=== PATIENT | male | born 1950 | race Caucasian/White ===

== ENCOUNTER 2019-09-27 09:09 | Inpatient (IN) | payer MEDICARE, OTHER ==
[~2019-09-27] VITALS: Ht 180.3 cm; Wt 108.5 kg
[~2019-09-27 09:09] MED LIST: AGGRENOX; AMARYL; ASPI325; ASPI325 PO; ATEN50 PO; Aggrenox Capsu1 EACH PO; BUPR150ER PO; CARDIZEM; COMPLETE MULTI1 EAC1 PO; Cardizem LA360 MG PO; DILT120ER PO; DILT60ER PO; Diovan320 MG; FLUT.05NI; GLIM4 PO; GLIP10ER PO; GLIP5 PO; INSULANPEN SC; LACRI-LUBE; LAMO100 PO; LAMO25 PO; LANTUS; LISINOPRIL; METF500; METO50ER; Norco 5-325 Ta1 EACH PO; OLME20; OLME20 PO; OMEP40CA12 PO; PIOG45 PO; ROSI2; SULTRIDS PO; VALS80 PO; VIT D; VITAMIN D31000 UNIT PO; WELLBUTRIN
[2019-09-27 09:46] LABS: BASOPHILS ABSOLUTE AUTO 0.04 K/mm3 (0.00-0.23); BASOPHILS PERCENT AUTO 1 % (0-2); EOSINOPHILS ABSOLUTE AUTO 0.19 K/mm3 (0.00-0.68); EOSINOPHILS PERCENT AUTO 3 % (0-6); Hematocrit 40.5 % (37.0-53.0); Hemoglobin 13.3 g/dL (13.5-17.5); IMMATURE GRAN ABSOLUTE AUTO 0.01 K/mm3 (0.00-0.10); IMMATURE GRAN PERCENT AUTO 0 % (0-1); LYMPHOCYTES ABSOLUTE AUTO 1.35 K/mm3 (0.84-5.20); LYMPHOCYTES PERCENT AUTO 19 % (21-46); MONOCYTES ABSOLUTE AUTO 0.42 K/mm3 (0.16-1.47); MONOCYTES PERCENT AUTO 6 % (4-13); Mean Corpuscular HGB 28.9 pg (26.0-34.0); Mean Corpuscular HGB Conc 32.8 g/dL (31.5-36.5); Mean Corpuscular Volume 88 fL (80-100); Mean Platelet Volume 10.3 fL (9.1-12.4); NEUTROPHILS ABSOLUTE AUTO 5.29 K/mm3 (1.96-9.15); NEUTROPHILS PERCENT AUTO 73 % (41-73); Platelet Count 181 K/mm3 (150-400); RDW Coefficient Variation 13.4 % (11.7-14.2); RDW Standard Deviation 42.8 fL (35.1-46.3); Red Blood Cell Count 4.61 M/mm3 (4.30-5.90)
[2019-09-27 09:58] LABS: Alanine Aminotransfer (ALT/SGP 23 U/L (12-78); Albumin, Blood 3.3 g/dL (3.4-5.0); Albumin/Globulin Ratio 0.8 (0.8-1.8); Alk Phos 91 U/L (50-136); Anion Gap 5 mmol/L (6-16); Aspartate Aminotrans (AST/SGOT 16 U/L (12-37); Bilirubin, Total 0.6 mg/dL (0.1-1.0); Blood Urea Nitrogen 27 mg/dL (8-24); Bun/Creatinine Ratio 13.4 (12.0-20.0); CO2, Blood 25 mmol/L (21-32); Calcium, Blood 8.4 mg/dL (8.5-10.1); Chloride, Blood 107 mmol/L (98-108); Creatinine, Blood 2.02 mg/dL (0.60-1.20); Globulin, Blood 3.9 g/dL (2.2-4.0); Glomerular Filtration Rate 35 (60-); Glucose, Blood 192 mg/dL (70-99); Sodium, Blood 137 mmol/L (136-145); Total Protein, Blood 7.2 g/dL (6.4-8.2); Troponin I <0.015 ng/mL (0.000-0.040)
[2019-09-27 10:01] LABS: International Normalized Ratio 0.97; Prothrombin Time Results 10.4 Sec (9.7-11.5)
[2019-09-27 12:30] LABS: Phosphorus, Blood 2.6 mg/dL (2.5-4.9)
[2019-09-27 12:48] LABS: CHOL/HDL RATIO 5.6; Cholesterol 217 mg/dL (50-200); HDL Cholesterol 39 mg/dL (>39); LDL/HDL RATIO 3.4; Low Density Lipoprotein Chol 134 mg/dL (0-110); Triglycerides 220 mg/dL (30-160); Very Low Density Lipoprot Chol 44 mg/dL (6-32)
--- NOTE | 2019-09-27 13:38 | NUR ---
Echocardiogram using 9.0ml of agitated saline contrast.
--- NOTE | 2019-09-27 18:33 | NUR ---
PT ARRIVAL... PT ARRIVED ON UNIT VIA GURNEY. PT IS A&Ox4 AND WAS ADMITTED FOR CVA. PT HAS SLIGHT RIGHT SIDED FACIAL DROOP AND SLIGHT RIGHT SIDED WEAKNESS. PT HAS SOME DYSPHAGIA AND SLURRED WORDS BUT FOR THE MOST PART IS ABLE TO ANSWER QUESTIONS APPROPRIATLEY. PT'S VS STABLE EXCEPT FOR THE PT'S HYPERTENSION, THIS HAS GREATLY IMPROVED FROM ADMIT. PT DENIES HEADACHE, CHEST PAIN/PRESSURE N/V OR SOB AT THIS TIME. PT'S AT THE BEDSIDE. DIAZ WAS PLACE D/T RETENTION, FOELY IS DRAINING DARK YELLOW URINE TO GRAVITY. CALL LIGHT INREACH WILL CONTINUE TO MONITOR UNTIL REPORT IS GIVEN TO ONCOMING RN.
[2019-09-27 20:27] LABS: Source, Urine Clean Catch
[2019-09-27 20:33] LABS: Bilirubin, Urine Neg (Neg); Blood, Urine 5+ (Neg); Glucose Qualitative, Urine 3+ (Neg); Ketones, Urine 1+ (Neg); Leukocyte Esterase, Urine 3+ (Neg); Nitrite, Urine Pos (Neg); Protein, Urine 4+ (Neg); Urobilinogen, Urine NORM (Normal)
[2019-09-27 21:13] LABS: Appearance, Urine Cloudy (Clear); Color, Urine Red (P-Yellow)
[2019-09-27 21:14] LABS: Bacteria Mod /hpf; Red Blood Cells, Urine TNTC /hpf (0-2); Squamous Epithelial Cells Not Seen /hpf (Few); White Blood Cells, Urine TNTC /hpf (0-5)
[2019-09-28 05:34] LABS: BASOPHILS ABSOLUTE AUTO 0.05 K/mm3 (0.00-0.23); BASOPHILS PERCENT AUTO 1 % (0-2); EOSINOPHILS ABSOLUTE AUTO 0.14 K/mm3 (0.00-0.68); EOSINOPHILS PERCENT AUTO 2 % (0-6); Hematocrit 34.6 % (37.0-53.0); Hemoglobin 11.7 g/dL (13.5-17.5); IMMATURE GRAN ABSOLUTE AUTO 0.02 K/mm3 (0.00-0.10); IMMATURE GRAN PERCENT AUTO 0 % (0-1); LYMPHOCYTES ABSOLUTE AUTO 1.57 K/mm3 (0.84-5.20); LYMPHOCYTES PERCENT AUTO 16 % (21-46); MONOCYTES ABSOLUTE AUTO 0.72 K/mm3 (0.16-1.47); MONOCYTES PERCENT AUTO 8 % (4-13); Mean Corpuscular HGB 29.5 pg (26.0-34.0); Mean Corpuscular HGB Conc 33.8 g/dL (31.5-36.5); Mean Corpuscular Volume 87 fL (80-100); Mean Platelet Volume 10.4 fL (9.1-12.4); NEUTROPHILS ABSOLUTE AUTO 7.07 K/mm3 (1.96-9.15); NEUTROPHILS PERCENT AUTO 74 % (41-73); Platelet Count 162 K/mm3 (150-400); RDW Coefficient Variation 13.5 % (11.7-14.2); RDW Standard Deviation 42.6 fL (35.1-46.3); Red Blood Cell Count 3.96 M/mm3 (4.30-5.90); White Blood Cell Count 9.57 K/mm3 (4.00-11.30)
[2019-09-28 06:02] LABS: Albumin, Blood 2.6 g/dL (3.4-5.0); Albumin/Globulin Ratio 0.8 (0.8-1.8); Bilirubin, Total 0.7 mg/dL (0.1-1.0); Bun/Creatinine Ratio 12.8 (12.0-20.0); Calcium, Blood 8.1 mg/dL (8.5-10.1); Creatinine, Blood 2.18 mg/dL (0.60-1.20); Globulin, Blood 3.3 g/dL (2.2-4.0); Total Protein, Blood 5.9 g/dL (6.4-8.2)
--- NOTE | 2019-09-28 06:39 | NUR ---
SHIFT SUMMARY PT A&O X4 W/ SLIGHT R-SIDED FACIAL DROOP & R-SIDED WEAKNESS. PT'S SPEECH INTERMITTENTLY SLURRED, OTHERWISE CLEAR. LUNG SOUNDS CLEAR. SPO2 > 92% ON RA OR CPAP. MONITOR SHOWS NSR. BP ELEVATED W/ SYS BP RANGING FROM 181-200 THIS SHIFT. DIAZ CATH PATENT AND DRAINING YELLOW/RED URINE. NS GTT INFUSING PER ORDERS. WILL CONTINUE TO MONITOR AND PROVIDE CARE UNTIL REPORT OFF TO DAY SHIFT RN.
--- NOTE | 2019-09-28 18:20 | NUR ---
SHIFT SUMMARY PT IS A NEW TRANSFER FROM PCU 12 TO ROOM 332 THIS EVENING. PT ORIENTED TO ROOM AND CALL LIGHT. NO COMPLAINTS OF PAIN OR SHORTNESS OF BREATH. PT ABLE TO TRANSFER TO BED FROM WHEELCHAIR WITH MODERATE ASSIST. DIAZ PATENT AND DRAINING WITHOUT DIFFICULTY. PT EATING DINNER AT THIS TIME WITHOUT DIFFICULTY. NO ACUTE CHANGES AT THIS TIME. CALL LIGHT IN REACH. WILL CONTINUE TO MONITOR AND REPORT TO ONCOMING RN.
[2019-09-29 06:05] LABS: BASOPHILS ABSOLUTE AUTO 0.06 K/mm3 (0.00-0.23); BASOPHILS PERCENT AUTO 1 % (0-2); EOSINOPHILS ABSOLUTE AUTO 0.29 K/mm3 (0.00-0.68); EOSINOPHILS PERCENT AUTO 4 % (0-6); Hematocrit 38.8 % (37.0-53.0); Hemoglobin 13.1 g/dL (13.5-17.5); IMMATURE GRAN ABSOLUTE AUTO 0.03 K/mm3 (0.00-0.10); IMMATURE GRAN PERCENT AUTO 0 % (0-1); LYMPHOCYTES ABSOLUTE AUTO 1.62 K/mm3 (0.84-5.20); LYMPHOCYTES PERCENT AUTO 20 % (21-46); MONOCYTES ABSOLUTE AUTO 0.55 K/mm3 (0.16-1.47); MONOCYTES PERCENT AUTO 7 % (4-13); Mean Corpuscular HGB 29.3 pg (26.0-34.0); Mean Corpuscular HGB Conc 33.8 g/dL (31.5-36.5); Mean Corpuscular Volume 87 fL (80-100); Mean Platelet Volume 10.1 fL (9.1-12.4); NEUTROPHILS ABSOLUTE AUTO 5.66 K/mm3 (1.96-9.15); NEUTROPHILS PERCENT AUTO 69 % (41-73); Platelet Count 173 K/mm3 (150-400); RDW Coefficient Variation 13.2 % (11.7-14.2); RDW Standard Deviation 41.8 fL (35.1-46.3); Red Blood Cell Count 4.47 M/mm3 (4.30-5.90); White Blood Cell Count 8.21 K/mm3 (4.00-11.30)
--- NOTE | 2019-09-29 06:41 | NUR ---
SHIFT SUMMARY PT IS A 69 Y/O MALE, ADMITTED FOR A CVA. HE IS A&O X 3, AND A 1PA W/ A FWW. PT DOES HAVE MILD OVERALL WEAKNESS, BUT NO INCREASED R-SIDED WEAKNESS NOTED. PT DID HAVE SOME SLURRED SPEECH AND APHASIA. NO COMPLAINTS OF PAIN, NAUSEA OR SOB. PT'S BP WAS ELEVATED DURING THE NIGHT, IN THE 180-190S SYSTOLICALLY. ALL OTHER VITALS STABLE. PT'S DIAZ IS PATENT AND DRAINING CLEAR YELLOW URINE. NO OTHER ACUTE CHANGES IN PT CONDITION NOTED. WILL CONTINUE TO MONITOR AND TREAT PER EMAR UNTIL HAND OFF TO DAY SHIFT RN.
[2019-09-29 06:42] LABS: Percent Saturation 30.8 % (20.0-50.0)
[2019-09-29 07:03] LABS: Bun/Creatinine Ratio 13.9 (12.0-20.0); Calcium, Blood 8.4 mg/dL (8.5-10.1); Creatinine, Blood 2.09 mg/dL (0.60-1.20); Potassium, Blood 4.3 mmol/L (3.5-5.5); Thyroid Stimulating Hormone 3.3 uIU/mL (0.360-4.800)
--- NOTE | 2019-09-29 18:33 | NUR ---
SHIFT SUMMARY DR. NEWMAN CHANGED PT'S BLOOD PRESSURE MEDICATIONS AND PT'S BLOOD PRESSURE HAD LOWERED SLIGHTLY. PT SAT UP IN THE CHAIR FOR BREAKFAST AND TOOK SHOWER. PT HAS HAD NO COMPLAINTS OF PAIN OR SHORTNESS OF BREATH. NO ACUTE CHANGES THIS SHIFT. PLANS FOR POSSIBLE DISCHARGE TOMORROW IF BLOOD PRESSURE IS BETTER CONTROLLED. CALL LIGHT IN REACH. WILL CONTINUE TO MONITOR AND REPORT TO ONCOMING RN.
--- NOTE | 2019-09-30 06:38 | NUR ---
SHIFT SUMMARY PT IS A 69 Y/O MALE, ADMITTED FOR A CVA. HE IS A&O X 4, AND A 1PA UP TO THE BATHROOM. NO COMPLAINTS OF PAIN, NAUSEA OR SOB. VITAL SIGNS STABLE, PT'S BP REMAINED IN THE 150S SYSTOLICALLY. PT SLEPT WELL THROUGH THE NIGHT. NO ACUTE CHANGES IN PT CONDITION NOTED. WILL CONTINUE TO MONITOR AND TREAT PER EMAR UNTIL HAND OFF TO DAY SHIFT RN.
[2019-09-30] MEDS ORDERED: ASPI81CH PO (13:31)
[2019-09-30] MEDS ORDERED: NIFE90ER PO (13:32)
[2019-09-30] MEDS ORDERED: ATOR80 PO (13:32)
[2019-09-30] MEDS ORDERED: CHLO25B PO (13:33)
--- NOTE | 2019-09-30 15:37 | NUR ---
REVIEW D'C W/PATIENT AND FAMILY. AWARE TO KEEP APPT W/ THIS WEEK ON MONDAY AND TO HAVE BLD TEST DAY BEFORE. REVIEW MEDS. ANSWER ALL QUESTIONS. AWARE CAN RETURN TO E.R. IF ANY PROBLEMS. IN W/C TO POV W/FAMILY
== END 2019-09-30 15:33 | disposition home or self-care (01) | DRG 65 ==
LOC: ER 09:09 → PCU 12:09 → MEDS 09-28 16:55
PROVIDERS: Emergency Medicine; Internal Medicine; Nurse Practitioner Acute Care; ADMIT Internal Medicine
DX: I63.132 Cerebral infarction due to embolism of left carotid artery (principal); N18.4 Chronic kidney disease, stage 4 (severe); N17.9 Acute kidney failure, unspecified; I12.9 Hypertensive chronic kidney disease with stage 1 through stage 4 chronic kidney disease, or unspecified chronic kidney disease; E11.22 Type 2 diabetes mellitus with diabetic chronic kidney disease; R47.81 Slurred speech; F31.9 Bipolar disorder, unspecified; G47.33 Obstructive sleep apnea (adult) (pediatric); E66.01 Morbid (severe) obesity due to excess calories; D63.1 Anemia in chronic kidney disease; D50.9 Iron deficiency anemia, unspecified; Z66 Do not resuscitate; Z86.73 Personal history of transient ischemic attack (TIA), and cerebral infarction without residual deficits
CPT/HCPCS: 36415; 51702; 70450; 70551; 80048; 80053; 80061; 81001; 82728; 82947; 83036; 83540; 83550; 83735; 84100; 84153; 84443; 84484; 85025; 85610; 85730; 87086; 90686; 92610; 93005; 93010; 93306; 93880; 94660; 94762; 96361-59; 96372-59; 96374-59; 96375-59; 96376-59; 97116; 97161; 97166; 97535; 99285-25; A9270-GY; G0008; J0360; J1650; J7030

== ENCOUNTER 2022-03-15 06:48 | Day surgery (SDC) | payer MEDICARE, OTHER ==
[~2022-03-15] VITALS: Ht 177.8 cm; Wt 86.7 kg
[~2022-03-15 06:48] MED LIST changes: +ASPI81CH PO; +ATOR80 PO; +CHLO25B PO; +NIFE90ER PO
--- NOTE | 2022-03-15 07:12 | NUR ---
03/15/22 0712 Meka Ramirez TETRACAINE TO LEFT EYE AT 0706 PLEDGET TO LEFT EYE AT 0708 BY [facility].[email or web address]
== END 2022-03-15 09:15 | disposition home or self-care (01) ==
LOC: ORSCSDS 06:48
PROVIDERS: Ophthalmology
PROC: 08RK3JZ Replacement of Left Lens with Synthetic Substitute, Percutaneous Approach (ICD-10-PCS; principal; 2022-03-15 08:00)
DX: H25.12 Age-related nuclear cataract, left eye (principal); E11.42 Type 2 diabetes mellitus with diabetic polyneuropathy; I10 Essential (primary) hypertension; G47.33 Obstructive sleep apnea (adult) (pediatric); Z86.73 Personal history of transient ischemic attack (TIA), and cerebral infarction without residual deficits; F32.A Depression, unspecified; Z79.899 Other long term (current) drug therapy
CPT/HCPCS: 82947; A9270; J2001; J2250; J3010; J3301; J7040; V2632